=== PATIENT | female | born 1985 | race Asian ===

== ENCOUNTER 2020-01-18 08:22 | Emergency (ER) | payer OTHER ==
[~2020-01-18] VITALS: Ht 149.9 cm; Wt 45.5 kg
[2020-01-18] MEDS ORDERED: MULT-1203 PO (08:34)
[2020-01-18] MEDS ORDERED: PERTUSS(ACELL),DIPH,TET VAC/PF 0.5 ML VIAL IM ONE (09:15)
[2020-01-18] MEDS ORDERED: DOXYCYCLINE HYCLATE 100 MG TABLET PO ONE (09:15)
[2020-01-18 10:25] VITALS: BP 118/72
== END 2020-01-18 10:49 | disposition home or self-care (01) ==
LOC: EMS 08:31
DX: S61.212A Laceration without foreign body of right middle finger without damage to nail, initial encounter (principal); S61.214A Laceration without foreign body of right ring finger without damage to nail, initial encounter; W45.8XXA Other foreign body or object entering through skin, initial encounter; Y93.89 Activity, other specified; Y92.89 Other specified places as the place of occurrence of the external cause; Y99.8 Other external cause status
CPT/HCPCS: 90471; 90715